=== PATIENT | female | born 1990 | race Caucasian/White ===

== ENCOUNTER 2024-12-13 07:20 | Emergency (ER) | payer BC, SELFPAY ==
--- OUTSIDE RECORDS SUMMARY | 2024-12-13 07:23 | XMS_ITS | Data Portability ---
Author Organization YASIR Noel DEICER TESTER, [id number] Address [address] [place] [id number] Assessment No assessment recorded. Plan of Treatment Reminders Order Date Submit Date Provider Last Modified By Organization Details Last Modified Time Details Appointments None recorded. Lab thyrotropin , QN, serum or plasma 2023 [facility], [address] [place] [address], [address], [place], [address], 4 10:51:12 Referral None recorded. Procedures None recorded. Surgeries None recorded. Imaging US, obstetric, biophysical profile + non-stress test 2023 024 [facility] [email or web address] rtners_[place] , [address] [facility], [address] [place] [address], [address], 4 16:46:20 US, obstetric, biophysical profile + non-stress test 2023 024 [facility] [email or web address]_[email or web address] rtners_[place] , [address] [facility], [address], [address], 4 16:49:56 US, obstetric, follow-up 2023 024 [facility]app Not available 15:09:06 Medication Orders None recorded. Patient TargetsNo targets recorded. Patient Instructions Encounter Date Encounter Id Patient Instructions Last Modified By Organization Details Last Modified Time 11/20/2023 [id number] venous blood draw* [email or web address] Not available 11/20/2023 12:35:35 Reason for Referral None Reported. Results Created Date Observation Date Name Description Value Unit Range Abnormal Flag Note LastModifiedBy Organization Detail LastModifiedTime 09/04/19 24 09/04/2023 GROUP B STREP TOCOC CUS PCR WITH REFLE X TO CULTU RE AND SENSI TIVIT Y group B strep PCR Negati ve negati ve Presu med negat [place] for Strep tococ cus agala ctiae (Grou p B Strep tococ cus) or the numbe r of organ isms may be below the limit of detec tion of the assay . The Cephe id Xpert GBS LB Assay , perfo rmed on the GeneX pert? ? Instr ument Syste ms, is a quali tativ e in vitro diagn ostic test desig darcie to detec t Group B Strep tococ cus (GBS) DNA from enric hed vagin al/re ctal swab speci mens, using fully autom ated, real- time polym erase chain react ion (PCR) with fluor ogeni c detec tion of the ampli fied DNA. Xpert GBS LB Assay testi ng is indic ated as an aid in deter minin g GBS colon izati on statu s in antep artum women . This assay does not diagn ose or monit or treat ment for GBS infec tions . The Cephe id Xpert GBS LB Assay is inten ded for use in hospi sulema, refer ence or state labor atory setti ngs. The devic e is not inten ded for point -of-c are use. Not Available [address], [place], [address], 09/05/2023 18:21:26 09/04/19 24 09/04/2023 bacte rial vagin osis + vagin itis panel , vagin al gardnerella positi ve negati ve abnormal Not Available [id number] vaca_harris lockhart [address] [facility] [address], [place], [address], 09/04/2023 16:34:04 09/04/19 24 09/04/2023 bacte rial vagin osis + vagin itis panel , vagin al trichomonas negati ve negati ve normal Not Available [id number] rtners_harris le [address] [facility] [address], [place], [address], 09/04/2023 16:34:04 09/04/19 24 09/04/2023 bacte rial vagin osis + vagin itis panel , vagin al delvis negati ve negati ve normal Not Available [id number] rtners_[place] le [address] [facility] [address], [place], [address], 09/04/2023 16:34:04 09/11/19 24 09/11/2023 HEMOG LOBIN hemoglobin 10.5 g/dL 11.7-1 5.7 low Not Available [address], [place], [address], 09/11/2023 21:21:59 09/11/19 24 09/11/2023 HEMOG LOBIN A1C hemoglobin A1C 5.4 % <5.7 Talita l <5.7% Predi abete s 5.7-6 .4% Diabe adri 6.5% or highe r Note: Adopt ed from ADA conse nsus guide lines . Not Available [address], [place], [address], 09/11/2023 21:22:00 11/20/19 24 11/20/2023 THYRO TROPI N (TSH) TSH 2.22 uIU/m L 0.30-4 .20 Not Available [address], [place], [address], 11/21/2023 10:51:12 09/04/19 24 09/04/2023 US, obste tric, bioph ysica l profi le + non-s tress test No observ ation record ed. [email or web address] [address], [place], [address], 09/05/2023 10:16:02 09/11/19 24 09/11/2023 US, obste tric, bioph ysica l profi le + non-s tress test No observ ation record ed. [email or web address] [address], [place], [address], 09/11/2023 20:47:09 09/19/19 24 09/19/2023 US, obste tric, bioph ysica l profi le + non-s tress test No observ ation record ed. [email or web address] i [address], [place], [address], 09/19/2023 16:56:30 09/19/19 24 09/19/2023 non-s tress test No observ ation record ed. [email or web address] [facility]ners[facility] le [address] [facility] [address], [place], [address], 09/19/2023 17:10:12 09/25/19 24 09/25/2023 US, obste tric, bioph ysica l profi le + non-s tress test No observ ation record ed. [email or web address] [address], [place], [address], 09/26/2023 13:44:20 10/02/19 24 10/02/2023 US, obste tric, bioph ysica l profi le + non-s tress test No observ ation record ed. [email or web address] [address], [place], [address], 10/02/2023 17:23:52 10/09/19 24 10/09/2023 US, obste tric, bioph ysica l profi le + non-s tress test No observ ation record ed. [email or web address] [address], [place], [address], 10/09/2023 15:53:58 Result Notes None recorded. Problems Name Problem SNOMED Code Status Onset Date Resolution Date Notes Provider Name and Address Organization Details Recorded Time Obesity 602079910 Completed BMI=35 @ 9wks [place] [address], [place], [address] 4 17:27:21 History of bariatric surgical procedure 687563774 Completed Hx [place]astric [place] [address], [place], [address], [facility] 4 17:27:21 Celiac disease 647067645 Active 2022 Rodney Anderson (TERMED) null, [facility] DEICER TESTER 3 11:25:11 Polycysti c ovary syndrome 697202390 Active 2022 Rodney Azevedoic (TERMED) null, [place] - [employer] DEICER TESTER 3 11:25:21 44282668 Completed 202211/06/2023 Rolanda Bahena null, [facility] DEICER TESTER 4 13:39:40 Problem Notes None recorded. Procedures Surgical History Date Name Laterality Status Provider Name and Address Organization Details Recorded Time 01/28/20 24 IUD Insertion Procedure Note (Premier) cancelled Karen Galvin [facility] 12/24/2023 13:47:17 10/09/19 24 Non-Stress Test NST (single) (Premier) [place] [address], [place], [address], [facility] 10/09/2023 16:10:49 10/02/19 24 Non-Stress Test NST (single) (Premier) [place] [address], [place], [address], [facility] 10/02/2023 17:25:13 09/25/19 24 Non-Stress Test NST (single) (Premier) [place] [address], [place], [address], [place] - [facility]ER TESTER 09/26/2023 23:00:11 09/19/19 24 Non-Stress Test NST (single) (Premier) completed SILVANO WELDON PA-C [address], [place], [address], [place] - [facility] 09/19/2023 17:08:38 09/11/19 24 Non-Stress Test NST (single) (Premier) [place] [address], [place], [address], [place] - [facility] 09/11/2023 16:39:06 09/04/19 24 Non-Stress Test NST (single) (Premier) [place] [address], [place], [address], [place] - [facility] 09/04/2023 16:36:09 08/28/19 24 Non-Stress Test NST (single) (Premier) completed SILVANO WELDON PA-C [address], [place], [address], [place] [facility] 08/28/2023 17:37:24 08/22/19 24 Non-Stress Test NST (single) (Premier) completed SILVANO WELDON PA-C [address], [place], [address], [place] - [facility] 08/22/2023 17:17:19 04/03/20 23 Date of Last Pap Smear completed Karen Galvin [place] - [facility] 09/11/2023 15:38:29 11/08/19 16 laparoscopic sleeve gastrectomy completed Not Available [facility] 12/24/2019 05:09:31 05/27/20 16 dilation and curettage completed Not Available [facility] 12/24/2019 05:09:32 myringotomy with tubes discharge education completed Not Available [facility] 12/24/2019 05:09:31 tonsillectomy completed Not Available [facility] 12/24/2019 05:09:31 Cholecystectomy completed Not Available [facility] 12/24/2019 05:09:31 Imaging Results None recorded. Procedure Notes None recorded. Medical Equipment None Reported. Allergies No known drug allergies Medications Name Sig Start Date Stop Date Status Note LastModified by Organization Details LastModified Time vitamin d3 1.25 mg (60053 ut) caps 02/25 completed Not Available Not Available Not Available cyclobenzap rine 10 mg tablet 02/25 completed Not Available Not Available Not Available amoxicillin 500 mg capsule 07/17 completed Not Available Not Available Not Available prednisone 10 mg tablet TAKE 4 TABLETS BY MOUTH ONCE DAILY WITH MEALS FOR 2 DAYS THEN 3 ONCE DAILY FOR 2 DAYS THEN 2 ONCE DAILY FOR 2 DAYS THEN 1 ONCE DAILY FOR 2 DAYS . TAKE WITH A MEAL. 02/25 completed Not Available Not Available Not Available valacyclovi r 1 gram tablet Take 1 tablet every 8 hours by oral route for 7 days. 11/19 completed Not Available Not Available Not Available prednisone 20 mg tablet TAKE 2 TABLETS BY MOUTH ONCE DAILY FOR 5 DAYS 11/19 completed Not Available Not Available Not Available metronidazo le 500 mg tablet TAKE 1 TABLET BY MOUTH EVERY 12 HOURS FOR 7 DAYS FOR BACTERIAL VAGINOSIS . 09/18 completed Not Available Not Available Not Available hydroxyzine HCl 50 mg tablet TAKE 2 TABLETS BY MOUTH ONCE DAILY AT BEDTIME FOR SLEEP active Not Available Not Available No t Available triamcinolo ne acetonide 0.1 % topical cream 11/19 completed Not Available Not Available Not Available amoxicillin 500 mg tablet 10/06 completed Not Available Not Available Not Available meloxicam 7.5 mg tablet TAKE 1 TABLET BY MOUTH ONCE DAILY 02/25 completed Not Available Not Available Not Available benzonatate 100 mg capsule TAKE 1 CAPSULE BY MOUTH THREE TIMES DAILY NEEDED FOR COUGH 02/25 completed Not Available Not Available Not Available sertraline 25 mg tablet TAKE 1 TABLET BY MOUTH IN THE MORNING 02/25 completed Not Available Not Available Not Available fluticasone propionate 220 mcg/actuati on HFA aerosol inhaler INHALE 1 PUFF BY MOUTH TWICE DAILY 02/25 completed Not Available Not Available Not Available methylpredn isolone 4 mg tablets in a dose pack 02/25 completed Not Available Not Available Not Available fluticasone propionate 50 mcg/actuati on nasal spray,suspe nsion USE 1 SPRAY(S) IN EACH NOSTRIL ONCE DAILY active Not Available Not Available No t Available doxycycline hyclate 100 mg tablet TAKE 1 TABLET BY MOUTH TWICE DAILY FOR 7 DAYS 02/25 completed Not Available Not Available Not Available amoxicillin 875 mg-potassiu m clavulanate 125 mg tablet TAKE 1 TABLET BY MOUTH TWICE DAILY WITH MEALS FOR 5 DAYS 02/25 completed Not Available Not Available Not Available Ventolin HFA 90 mcg/actuati on aerosol inhaler INHALE 2 PUFFS BY MOUTH EVERY 4 HOURS NEEDED FOR SHORTNESS OF BREATH active Not Available Not Available No t Available hydroxyzine pamoate 25 mg capsule TAKE 1 CAPSULE BY MOUTH THREE TIMES DAILY NEEDED FOR ANXIETY 02/25 completed Not Available Not Available Not Available Advair HFA 230 mcg-21 mcg/actuati on aerosol inhaler INHALE 2 PUFFS BY MOUTH TWICE DAILY 02/25 completed Not Available Not Available Not Available Symbicort 160 mcg-4.5 mcg/actuati on HFA aerosol inhaler INHALE 2 PUFFS BY MOUTH TWICE DAILY active Not Available Not Available No t Available cholecalcif jose e (vitamin D3) 1,250 mcg (50,000 unit) capsule TAKE 1 CAPSULE BY MOUTH ONCE A WEEK 02/25 completed Not Available Not Available Not Available + DHA active Not Available Not Available Not Available EluRyng 0.12 mg-0.015 mg/24 hr vaginal ring INSERT 1 RING VAGINALLY AND LEAVE IN PLACE FOR 3 CONSECUTI VE WEEKS, THEN REMOVE FOR 1 WEEK. REPEAT WITH NEW RING. 02/25 completed Not Available Not Available Not Available Vitals Date Recorded Body weight Provider Name an d Address Organization Details Last Updated DateTime 10/02/2023 08980.68994 g Karen COOLEY - [facility] YN 10/02/2023 15:49:44 Date Recorded Body height Body mass index (BMI) Heart rate Systolic And Diastolic Provider Name and Address Organization Details Last Updated DateTime 10/02/2023 162.56 cm 36.9 kg/m2 94 /min 107/63 mm[Hg] Sienna Martell (TERMED) [facility] DEICER TESTER 10/02/2023 15:21:37 Date Recorded Body height Body weight Heart rate Systolic And Diastolic Provider Name and Address Organization Details Last Updated DateTime 10/07/2023 162.56 cm 29607.397 7 g 111 /min 122/81 mm[Hg] Sienna Martell (TERMED) [facility] DEICER TESTER 10/07/2023 11:35:08 Date Recorded Body weight Systolic And Diastolic Provider Name and Address Organization Details Last Updated DateTime 10/09/2023 70726.70830 g 116/69 mm[Hg] [place] [address] [facility],[address], [place], [address], [facility] DEICER TESTER 10/09/2023 16:07:39 Date Recorded Body height Body mass index (BMI) Body weight Heart rate Systolic And Diastolic Provider Name and Address Organization Details Last Updated DateTime 10/09/2023 162.56 cm 36.6 kg/m2 40371.61 g 93 /min 116/69 mm[Hg] Rodney Anderson (TERMED) [facility] DEICER TESTER 10/09/2023 15:42:15 Date Recorded Body height Body mass index (BMI) Body weight Heart rate Systolic And Diastolic Provider Name and Address Organization Details Last Updated DateTime 11/20/2023 162.56 cm 34.6 kg/m2 38625.94 g 71 /min 122/73 mm[Hg] Sienna Martell (TERMED) [facility] DEICER TESTER 11/20/2023 11:39:04 Social History Question Answer Notes LastModified by Organizat ion Details LastModified Time Tobacco Smoking Status Never Smoker Tobacco *Status: Never Not Available [employer] 12/28/2019 11:22:48 Do You Have An Advance Directive? No Does Not Have A Health Directive Information not available 12/28/2019 If You Are , What Was Your Level Of Alcohol Consumption Prior To ? Occasional Socially Information not available 02/25/2023 Is Blood Transfusion Acceptable In An Emergency? Yes Information not available 02/25/2023 What Is Your Level Of Caffeine Consumption? Moderate 1cup Qd Information not available 02/25/2023 What Type Of Diet Are You Following? REGULAR Information not available 02/25/2023 How Many Times Per Week Do You Exercise? 3-4 Times Per Week Walk Daily Information not available 02/25/2023 History Of Domestic Violence No Denies Any History Of Domestic Violence Information not available 12/28/2019 Spouse/Partners Name Rory Day Information not available 02/25/2023 Ethnic Background White Or Information not available 02/25/2023 Are You Passively Exposed To Smoke? No Information not available 02/25/2023 Marital Status Informati on not available 12/28/2019 What Was The Date Of Your Most Recent Tobacco Screening? 02/25/2023 Information not available 02/25/2023 Performs Monthly Self-breast Exam? No Does Not Perform Monthly Breast Exams Information not available 12/28/2019 What Is Your Relationship Status? Information not available 02/25/2023 Are You Sexually Active? Yes Currently Sexually Active Information not available 12/28/2019 Has Tobacco Cessation Counseling Been Provided? Yes Information not available 02/25/2023 On What Date Was Tobacco Cessation Counseling Provided? 02/25/2023 Information not available 02/25/2023 Sex: Unknown Functional Status Question Answer Note LastModified by Organizat ion Details LastModified Time Do you use any illicit or recreational drugs? No Information not available 02/25/2023 What is your level of alcohol consumption? None Information not available 02/25/2023 Are you currently employed? 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 Moderate Exercise on a Regular Basis Information not available 12/28/2019 Mental Status None recorded. Family History Relationship Description Onset Age of this Age Resolved Age Notes LastModified by Organization Details LastModified Time Father Family history of diabetes mellitus Family Histor y of Diabet es: PATERN AL UNCLES Not available 12/24/2019 05:34:35 Father Family history of Cardiovascul ar disease Family Histor y of Hypert ension Not available 12/24/2019 05:34:35 Father Family history of endocrine disorders Family Histor y of Hyperl ipidem ia Not available 12/24/2019 05:34:35 Mother Family history of endocrine disorders Family Histor y of Thyroi d Disord er Not available 12/24/2019 05:34:35 Father Family history of malignant neoplasm Family Histor y of Cancer ; Bone, in ' (pancr eatic) adzihic Not available 02/25/2023 11:37:18 Brother Family history of diabetes mellitus Family Histor y of Diabet es: JAI GOULD UNCLES Not available 12/24/2019 05:34:35 Maternal Grandmother Family history of endocrine disorders Family Histor y of Thyroi d Disord er Not available 12/24/2019 05:34:35 Paternal Uncle Family history of diabetes mellitus Family Histor y of Diabet es: JAI GOULD UNCLES Not available 12/24/2019 05:34:35 Notes:Family History of Canc er; Colon ICD-9 V16.0 Family History of Anxiety ICD-9 V17.0 Family History of Lupus ICD-9 V17.89 Family History of Depression ICD- 9 V17.0 Family History of Cancer; Cervical ICD-9 V16.49 Family History of Migraines ICD-9 V19.8 Family History of Cancer; Breast ICD-9 V16.3 Family History of Gestational Diabetes ICD-9 V18.0 Medical History Condition Response Psych- Depression Y Psych- PMS/PMDD Psych- Anxiety Disorder Y Gynecological History Statement/Question Response History of Vulvar Dysplasia N Date of Last Mammogram Date of LMP 12/31/2022 History of Cervical Dysplasia N Do you have history of sexual trauma? N Menstrual Cycle Length (days) 28 Sexual Orientation Heterosexual Date of Last Diabetes Screening History of Infertility N Sexually Active Y Date of Last Colonoscopy Diethylstilbestrol (DARLENE) exp osed daughters of women who took DARLENE during ? N History of Gestational Diabetes N History of PCOS Y History of Endometriosis N History of Abnormal PAP N History of Recurrent Ovarian Cysts N Date of Last HPV Test Date of last bone density Age at Menarche: 14 History of Sexually Transmitted Infectio n N HPV Vaccine Not Completed Current Control Method None History of Fibroids N Urinary Incontinence Symptoms N Date of Last Pap Smear 04/03/2023 Date of Last Cholesterol Screening History of Dysmenorrhea N History of HPV N Obstetrics History GPAL:G 6 P 4 0 2 4 Type Value Multiple Births 0 Full Term 4 Induced 0 Spontaneous 1 Premature 0 Living 4 Ectopics 1 Total 6 Immunizations Vaccine Type Date Status Note Provider Nam e and Address Organization Details Recorded Time Influenza, split virus, quadrivalent, PF 03/14/2023 completed SILVANO WELDON PA-C [address] [facility],[address], [place], [address], [facility]ICER TESTER 04/01/2023 16:43:21 Tdap 07/29/2023 completed Alondra Schrader (TERMED) [facility], [place] - [facility]ICER TESTER 07/30/2023 10:44:53 Tdap 08/10/2019 completed Not Available [facility] 12/24/2019 05:12:06 Past Encounters Encounter ID Performer Location Encounter Start Date Encounter Closed Date Diagnosis/Indication Diagnosis SNOMED-CT Code Diagnosis ICD10 Code Diagnosis Note [id number] SILVANO WELDON PA-C [id number] TOMMY S_LILYDAL E [address] [place] [address] 02/25/2023 10:27:00 02/26/2023 11:07:04 Gestation period, 6 weeks 38933675 Z3A.01 [id number] SOM EPSTEIN MD [id number]_PIS MONIQUEARTLYNN S_LILYDAL E [address] [place] [address] 02/25/2023 10:24:42 02/25/2023 10:53:22 Routine care 200359448 Z34.91 [id number] SILVANO WELDON PA-C GN854_CSY TOMMY S_LILYDAL E [address] [place] [address] 03/14/2023 09:22:54 04/02/2023 15:54:38 Routine care 711280152 Z34.91 Administra tion of influenza vaccine 86224098 Z23 History of bariatric surgical procedure 136631092 Z98.84 Gastric Sleeve Obesity 331827211 E66.9 BMI=35 Gestation period, 9 weeks 122307 Z3A.09 [id number] Bethany Mazariegos MD VY157_QLQ ROPARTNER S_LILYDAL E [address] [address] 04/03/2023 09:44:30 04/03/2023 14:33:11 screening 893443190 Z36.9 Routine an tenatal care 701840081 Z34.81 Family his tory of malignant neoplasm of ovary 897566172 Z80.41 MAT GM AND PTS MOM NEG GENETIC TESTING Obesity 936874179 E66.9 HX GASTRIC SLEEVE SO NO 1 HR AND WILL DO OCC HGBA1C AND CHECK SUGARS AT 28 WKS [id number] CINTHIA MILAN, DO YJ884_JAX ROPARTNER S_LILYDAL E [address] [place] [address] 03/14/2023 09:22:27 03/14/2023 09:46:23 Routine care 885548782 Z34.91 [id number] Bethany Mazariegos MD ZU123_SBN ROPARTNER S_LILYDAL E [address] [place] [address] 05/01/2023 15:25:25 05/02/2023 14:58:01 Routine care 014556772 Z34.81 screening 2437 93269 Z36.9 Gestation period, 16 weeks 81224162 Z3A.16 [id number] Bethany Mazariegos MD RC003_KOB ROPARTNER S_LILYDAL E [address] [place] [address] 04/03/2023 10:30:39 04/03/2023 12:19:02 Uncertain viability of 711600345 O36.80X9 [id number] MARINA DURAN MD [id number]_FYI ROPARTNER S_LILYDAL E [address] [place] [address] 1 05/29/2023 10:19:25 05/29/2023 11:17:05 screening for malformation 946743968 Z36.3 [id number] CASANDRA MACKEY MD SN207_FYU ROPARTNER S_LILYDAL E [address] [place] [address], [place] [address] 05/29/2023 10:19:39 05/29/2023 12:28:46 Routine care 600481088 Z34.82 Gestation period, 20 weeks 52155615 Z3A.20 [id number] MD PEDRO Nicholson003_MET PRATIBHANER S_LILYDAL E [address] [place] [address], [place] [address] 06/12/2023 14:17:03 06/13/2023 09:49:04 Routine care 686157994 Z34.81 Gestation period, 22 weeks 48617452 Z3A.22 Obesity 873596721 E66.9 HX GASTRIC SLEEVE SO NO 1 HR AND WILL DO OCC HGBA1C AND CHECK SUGARS AT 28 WKS [id number] MD PEDRO Nicholson003_MET MONIQUEARTNER S_LILYDAL E [address] [place] [id number] 1 06/12/2023 14:15:34 06/12/2023 15:20:01 screening 843289310 Z3A.22 4ch, LVOT, 3VV, NL, profile [id number] MD PEDRO Nicholson003_MET MONIQUEARTNER S_LILYDAL E [address] [place] [address] 1 07/17/2023 15:19:03 07/17/2023 17:20:55 Routine care 928981239 Z34.81 [id number] MD PEDRO Nicholson003_MET MONIQUEARTNER S_LILYDAL E [address] [place] [address], [place] [address] 07/17/2023 15:18:58 07/17/2023 15:53:29 screening 636833650 Z3A.27 [id number] Bethany Mies, MD [id number]_TFO ROPARTNER S_LILYDAL E [address] [place] [address] [place] [address] 08/07/2023 15:28:57 08/08/2023 10:48:30 Routine care 775498170 Z34.81 Gestation period, 30 weeks 53515457 Z3A.30 History of bariatric surgical procedure 010515094 Z98.84 [id number] MARSHA OLIVARES, ZZ212_OPS MONIQUEARTNER S_LILYDAL E [address] [place] [address] [place] [address] 07/29/2023 17:10:47 07/31/2023 01:29:48 [facility] 345449659 R42 work note given to avoid in-person class time for the remainder of semester to limit driving at night Female sterilization 608 [address]66 Z30.2 *desire for tubal sterlizati on, consent signed today in the event she has a , this procedure could be performed* Orthostati c hypotension 62751601 I95.1 + today from sitting to standing. Discussed increased fluids, slow to rise, pillow in the bed, dramamine/ unisom PRN at bedtime Low back p ain in 1930252102 106 O26.899 encouraged her to begin using back support which she has and admits this makes the pain better [id number] MD PEDRO Nicholson003_MET TOMMY S_LILYDAL E [address] [place] [address] 1 08/07/2023 16:43:50 08/07/2023 17:10:17 Hypoglycemia [id number] E16.2 Z3A.30 [id number] MD PEDRO Nicholson003_MET MONIQUEARTLYNN S_LILYDAL E [address] [place] [address] 1 09/11/2023 14:20:01 09/13/2023 14:42:33 Routine care 687478153 Z34.81 History of bariatric surgical procedure 973759881 Z98.84 Gestation period, 35 weeks 16889579 Z3A.35 [id number] MD PEDRO Nicholson003_MET ROPARTNER S_LILYDAL E [address] [address] [place] [address] 1 09/25/2023 14:47:33 10/01/2023 08:45:51 Routine care 572078429 Z34.81 History of bariatric surgical procedure 506765235 Z98.84 Gestation period, 37 weeks 50242741 Z3A.37 [id number] Bethany Mazariegos MD JK460_HEC ROPARTNER S_LILYDAL E [address] [place] [address] 1 10/02/2023 14:42:06 10/03/2023 14:08:44 Routine care 298992907 Z34.81 History of bariatric surgical procedure 417570730 Z98.84 Gestation period, 38 weeks 65411710 Z3A.38 [id number] Bethany Mazariegos MD NI763_MDM ROPARTNER S_LILYDAL E [address] [place] [address] 1 10/09/2023 14:45:55 10/11/2023 10:57:54 Routine care 654485989 Z34.81 History of bariatric surgical procedure 654588113 Z98.84 Gestation period, 39 weeks 52676443 Z3A.39 [id number] SILVANO WELDON PA-C FE747_TNZ ROPARTNER S_LILYDAL E [address] [place] [address] 1 08/22/2023 16:18:35 08/26/2023 15:50:21 Gestation period, 32 weeks 8908600 Z3A.32 Hypoglycemia 178033427 E 16.2 BPP=8/8 [id number] SILVANO WELDON PA-C OS989_CPD ROPARTNER S_LILYDAL E [address] [place] [address] 1 08/28/2023 16:01:41 09/02/2023 16:41:02 Gestation period, 33 weeks 90943837 Z3A.33 la bor without delivery [id number] O60.03 Threatened - Loss of mucus plug with some painful UC's last night that since resolved Hypoglycemia 245781595 E 16.2 BPP=8/8, NST=Reacti ve [id number] CASANDRA MACKEY MD LM091_NKI ROPARTNER S_LILYDAL E [address] [place] [address] [facility] [address] 1 08/22/2023 15:48:50 08/22/2023 16:22:18 Hypoglycemia 215575901 E16.2 [id number] MARINA DURAN MD UY377_MRP ROPARTNER S_LILYDAL E [address] [place] [address] [facility] [address] 1 08/28/2023 15:47:28 08/28/2023 16:22:48 Hypoglycemia 667705881 E16.2 [id number] CASANDRA MACKEY MD PT147_NFM ROPARTNER S_LILYDAL E [address] [place] [address], [place] [address] 1 09/04/2023 15:12:03 09/04/2023 17:16:04 Routine care 584045230 Z34.82 Gestation period, 34 weeks 58468899 Z3A.34 Vaginal discharge 764223 006 N89.8 Bacterial vaginosis in 0504715851 96000 O23.243 [id number] MD PEDRO Nicholson003_MET ROPARTNER S_LILYDAL E [address] [place] [address] [facility] [address] 1 09/04/2023 15:11:34 09/04/2023 15:50:26 Hypoglycemia 045189759 E16.2 Z3A.34 [id number] MD PEDRO Nicholson003_MET ROPARTNER S_LILYDAL E [address] [place] [address] [facility] [address] 1 09/11/2023 14:18:40 09/11/2023 14:51:21 Hypoglycemia 079332077 E16.2 [id number] SILVANO WELDON PA-C OM299_FVV ROPARTNER S_LILYDAL E [address] [place] [address] [facility] [address] 1 09/19/2023 15:45:54 09/19/2023 17:13:40 Gestation period, 36 weeks 38920064 Z3A.36 Low matern al weight gain 71740025 O26.13 History of bariatric surgical procedure 432150602 Z98.84 Gastric Sleeve [id number] Bethany Mazariegos MD LJ678_YSU ROPARTNER S_LILYDAL E [address] [place] [address] 09/25/2023 14:39:31 09/25/2023 15:02:57 Maternal obesity complicating , childbirth and the puerperium, antepartum 9432659644 07 Z3A.37 [id number] CINTHIA MILAN, IB654_FAQ ROPARTNER S_LILYDAL E [address] [place] [address], [place] [address] 1 09/19/2023 15:44:52 09/19/2023 16:17:08 Low maternal weight gain 22790054 O26.13 Hypoglycem ia [id number] Bethany Mazariegos MD LK801_BGL ROPARTNER S_LILYDAL E [address] [place] [address] 10/02/2023 14:40:48 10/02/2023 15:09:06 Low maternal weight gain 33402901 Z3A.38 [id number] CASANDRA MACKEY MD XB452_WWV ROPARTNER S_LILYDAL E [address] [address] 10/07/2023 11:27:21 10/07/2023 14:33:40 Routine care 466102352 Z34.82 Gestation period, 39 weeks 71838821 Z3A.39 [id number] Bethany Mazariegos MD SI125_DGQ ROPARTNER S_LILYDAL E [address] [place] [address] 10/09/2023 14:41:19 10/09/2023 15:02:39 Low maternal weight gain 18211047 Z3A.39 [id number] Bethany Mazariegos MD TD590_VLI ROPARTNER S_LILYDAL E [address] [facility] [address] [place] [address] 11/20/2023 11:24:14 11/20/2023 14:54:30 state 86647285 Z39.2 rev iud and had 2 misplaced and pain so rev condoms and rtc [address] with ultrasound --uterus very ant and still ?fu 1 mth after placement- -?do pap at that time Thyroid di sorder screening 280039040 Z13.29 sl generous and redo when here for iud Health Concerns Section Related Observation LastModified by Organization Detai ls LastModified Time None Recorded Concern Status LastModified by Organization Details LastModified Time None Recorded Advance Directives Directive N: Does Not have a Health Di rective Payers None recorded. Notes Date Note Type Note Provider Name and Address Organization Details Recorded Time 10/07/2023 text/html 31 [id number] [place] [address] [email or web address], [place], [address], [place] - [employer] 10/07/2023 12:21:30 11/20/2023 text/html ([facility])Reported by PatientHPIFor problems, patient reportshemorrhoids. For delivering provider, patient reportshadley welch md. For date of delivery, patient [id number]/10/2023. For gestational age at delivery, patient [id number] weeks. For labor/delivery, patient reportsno laceration. For weight of baby, patient reportssingleton: 7 lbsand2 oz. For nicu stay for baby, patient reportsno. For breast or bottle feeding, patient reportsbreastfeedin g. For intercourse since delivery, patient reportsno. For preferred contraception, patient reports__. For depression, patient reportsgood social support. For last pap smear, patient reportsdate: 3andresult normal.ROS as [place] [address] [address], [place], [address], [place] - [employer] 11/20/2023 13:27:06 OBGyn Episode Ob Episode Information Episode Created Date Number of Fetuses Patient Bloodtype Patient rh Status Prepregnancy Weight lbs Domestic Partner Domestic Partner Phone Father Name Relief Captain Status 02/26/20 1 CLOSED Fetus Data First Name Last Name Admitted to NICU Weight (g) Sex Living Outcome Pediatric Complications Fetus ID Race Codes Race Delivery Type F [id number] Darcy Calculation Initial Darcy Date Initial Exam Date Initial Exam Provider Initial Ultrasound Date Last Menstrual Period Date Ultra Sound Weeks Gestation 0 Eighteen To Twenty Week Darcy Update Ultra Sound Date Fundal Height At Umbil Quickening Date Ultra Sound Latest Weeks Gestation Final Darcy Confirmed By Final Darcy Confirmed Date Final Darcy Date Ultra Sound Latest Days Gestation 0 0 Menstrual History Last Menstrual Date Menses Monthly On Bcp Conception Prior Menses Frequency Hcg Plus Date Menarche Onset Age Delivery Information Delivery Date Delivery Type Labor Anesthesia Weeks Gestation Incision Type Labor Labor Length Hrs Delivered By Post Complications Tubal Sterilization Discharge Date Comments 3 Discharge Information Feeding Method Contraceptive Method Maternal HG B and HCT Levels Ob Episode Information Episode Created Date Number of Fetuses Patient Bloodtype Patient rh Status Prepregnancy Weight lbs Domestic Partner Domestic Partner Phone Father Name Relief Captain Status 02/26/20 1 DELETED Darcy Calculation Initial Darcy Date Initial Exam Date Initial Exam Provider Initial Ultrasound Date Last Menstrual Period Date Ultra Sound Weeks Gestation 0 Eighteen To Twenty Week Darcy Update Ultra Sound Date Fundal Height At Umbil Quickening Date Ultra Sound Latest Weeks Gestation Final Darcy Confirmed By Final Darcy Confirmed Date Final Darcy Date Ultra Sound Latest Days Gestation 0 0 Menstrual History Last Menstrual Date Menses Monthly On Bcp Conception Prior Menses Frequency Hcg Plus Date Menarche Onset Age Delivery Information Delivery Date Delivery Type Labor Anesthesia Weeks Gestation Incision Type Labor Labor Length Hrs Delivered By Post Complications Tubal Sterilization Discharge Date Comments 0 Discharge Information Feeding Method Contraceptive Method Maternal HG B and HCT Levels Ob Episode Information Episode Created Date Number of Fetuses Patient Bloodtype Patient rh Status Prepregnancy Weight lbs Domestic Partner Domestic Partner Phone Father Name Relief Captain Status 02/26/20 1 CLOSED Fetus Data First Name Last Name Admitted to NICU Weight (g) Sex Living Outcome Pediatric Complications Fetus ID Race Codes Race Delivery Type F [id number] Darcy Calculation Initial Darcy Date Initial Exam Date Initial Exam Provider Initial Ultrasound Date Last Menstrual Period Date Ultra Sound Weeks Gestation 0 Eighteen To Twenty Week Darcy Update Ultra Sound Date Fundal Height At Umbil Quickening Date Ultra Sound Latest Weeks Gestation Final Darcy Confirmed By Final Darcy Confirmed Date Final Darcy Date Ultra Sound Latest Days Gestation 0 0 Menstrual History Last Menstrual Date Menses Monthly On Bcp Conception Prior Menses Frequency Hcg Plus Date Menarche Onset Age Delivery Information Delivery Date Delivery Type Labor Anesthesia Weeks Gestation Incision Type Labor Labor Length Hrs Delivered By Post Complications Tubal Sterilization Discharge Date Comments 1 Discharge Information Feeding Method Contraceptive Method Maternal HG B and HCT Levels Ob Episode Information Episode Created Date Number of Fetuses Patient Bloodtype Patient rh Status Prepregnancy Weight lbs Domestic Partner Domestic Partner Phone Father Name Relief Captain Status 03/14/20 23 1 O Positive Rory Valadez CLOSED Fetus Data First Name Last Name Admitted to NICU Weight (g) Sex Living Outcome Pediatric Complications Fetus ID Race Codes Race Delivery Type true Full Term [id number] Problems Problem Notes Mies/WW/FOB: Rory (Pt work s at [employer] ALSO STUDENT FOR [employer] AND 18 MTHS LEFT (1st=John, 2nd=Miles, 3rd=Yaneth) DARCY: 10/15/23 by 6wk US -- (c/w 9wk US)PANORAMA=NL HORIZON=NL AFP=NL FAS=NL AND REDO PROFILE=NL- Hx of Gastric Sleeve-DOING GLUCOSE TESTING FEW TIMES A WK AND ALL NL AND HAS NEVER BEEN DIABETIC HGB A1C 06/12=5.2 AT 22 WKS--30 WKS SOME LOW SUGARS SO GROWHT Q 4 WKS AND BPP/NST Q WK AT 32 WKS- Obesity (BMI=35): Rec 11-20 lb wt gain---REV SUGARS AT 27 WKS AND GOODMAT GM WITH BREAST AND OVARIAN CA AND PTS MOM GENETIC TESTING NEG AND PT WANTS TUBAL SO PLAN 3 MTHS PP AND SALPINGECTOMY--?PT WANTS EMPOWER?INDUCE AT 39 WKS-HX OF PRECIPITOUS DEL AFTER ROMGROWTH 47% AT 38 WKS-7LBS 2 OZ --SOME HYPOGLYCEMIA SO HGB A1C=5.3 ON --HGB=10.5 Problem Name Start Date End Date Resolution Snomed Code Not e Obesity [id number] BMI=35 @ 9 wks History of bariatric surgical procedure [id number] Hx of Gas tric Sleeve Darcy Calculation Initial Darcy Date Initial Exam Date Initial Exam Provider Initial Ultrasound Date Last Menstrual Period Date Ultra Sound Weeks Gestation 10/15/2023 03/14/2023 02/25/2023 12/31/2022 6 Eighteen To Twenty Week Darcy Update Ultra Sound Date Fundal Height At Umbil Quickening Date Ultra Sound Latest Weeks Gestation Final Darcy Confirmed By Final Dacry Confirmed Date Final Darcy Date Ultra Sound Latest Days Gestation 0 [id number] 04/01/2023 10/15/19 24 0 Pre-ladan Flowsheet Flowsheet Date 03/14/2023 Daigle Score Blood Edema Fundus Height Fundus Units Glucose Ketones Leukocytes Nitrite Labor Signs Protein Cervic Dilation Cervic Effacement Cervic Station Type Weight in lbs Pre/Post Dialysis Refused BP Diastolic BP Location Tested BP Systolic BP Type Fetus Heart Rate Present Fetus Movement Comments Flowsheet Date 03/14/2023 Daigle Score Blood Edema Fundus Height Fundus Units Glucose Ketones Leukocytes Nitrite Labor Signs Protein Cervic Dilation Cervic Effacement Cervic Station none none Type Weight in lbs Pre/Post Dialysis Refused Weight 205.119898819488 BP Diastolic BP Location Tested BP Systolic BP Type 75 124 sitting Fetus Heart Rate Present A 178 Present Fetus Movement A No Comments Pt reports nausea, occasiona l vomiting, fatigue, breast tenderness, urinary frequency. Denies VB, cramping/abd pain, dysuria. Reviewed 1st OB packet. Sent OB labs. Considering screenings. Gave SAB precautions. RTC in 3wks. All questions answered. Flowsheet Date 04/03/2023 Daigle Score Blood Edema Fundus Height Fundus Units Glucose Ketones Leukocytes Nitrite Labor Signs Protein Cervic Dilation Cervic Effacement Cervic Station neg 12 wks none negative none Negative trace Type Weight in lbs Pre/Post Dialysis Refused Weight 202.974811017170 BP Diastolic BP Location Tested BP Systolic BP Type 65 110 Fetus Heart Rate Present Fetus Movement Comments UA - Trace Bili--US FOR FHT AND TESTING TODAY FOR PANORAMA AND HORIZON Flowsheet Date 04/03/2023 Daigle Score Blood Edema Fundus Height Fundus Units Glucose Ketones Leukocytes Nitrite Labor Signs Protein Cervic Dilation Cervic Effacement Cervic Station Type Weight in lbs Pre/Post Dialysis Refused BP Diastolic BP Location Tested BP Systolic BP Type Fetus Heart Rate Present Fetus Movement Comments Flowsheet Date 05/01/2023 Daigle Score Blood Edema Fundus Height Fundus Units Glucose Ketones Leukocytes Nitrite Labor Signs Protein Cervic Dilation Cervic Effacement Cervic Station neg 16 wks none small none Negative neg Type Weight in lbs Pre/Post Dialysis Refused Weight 199.619507984549 BP Diastolic BP Location Tested BP Systolic BP Type 67 105 Fetus Heart Rate Present A Present Fetus Movement Comments AFP TODAY AND FEELS GOOD Flowsheet Date 05/29/2023 Daigle Score Blood Edema Fundus Height Fundus Units Glucose Ketones Leukocytes Nitrite Labor Signs Protein Cervic Dilation Cervic Effacement Cervic Station Type Weight in lbs Pre/Post Dialysis Refused BP Diastolic BP Location Tested BP Systolic BP Type Fetus Heart Rate Present Fetus Movement Comments Flowsheet Date 05/29/2023 Daigle Score Blood Edema Fundus Height Fundus Units Glucose Ketones Leukocytes Nitrite Labor Signs Protein Cervic Dilation Cervic Effacement Cervic Station 20 cm none Type Weight in lbs Pre/Post Dialysis Refused With clothes 203.21547739885 BP Diastolic BP Location Tested BP Systolic BP Type 60 113 Fetus Heart Rate Present A 140 Fetus Movement A Yes Comments Patient is here for her 20-w coquille OB visit. She is doing well. She had her 20 week anatomy scan done today.//TWG -2#. FAS today is nl but limited views of heart, profile and umbilical cord, EFW 66%, anterior placenta. RTC in 2 weeks for limited u/s. She is doing well. No concerns. Denies VB, LOF, UC. Active FM. El Flowsheet Date 06/12/2023 Daigle Score Blood Edema Fundus Height Fundus Units Glucose Ketones Leukocytes Nitrite Labor Signs Protein Cervic Dilation Cervic Effacement Cervic Station Type Weight in lbs Pre/Post Dialysis Refused BP Diastolic BP Location Tested BP Systolic BP Type Fetus Heart Rate Present Fetus Movement Comments Flowsheet Date 06/12/2023 Daigle Score Blood Edema Fundus Height Fundus Units Glucose Ketones Leukocytes Nitrite Labor Signs Protein Cervic Dilation Cervic Effacement Cervic Station 23 wks Type Weight in lbs Pre/Post Dialysis Refused Weight 199.010048519606 BP Diastolic BP Location Tested BP Systolic BP Type 69 109 Fetus Heart Rate Present A Present Fetus Movement A Yes Comments DOING FBS AND 1 HR AND ALL G OOD RANDOMLY--WILL DO HGB AND HGB A1C TODAY Flowsheet Date 07/17/2023 Daigle Score Blood Edema Fundus Height Fundus Units Glucose Ketones Leukocytes Nitrite Labor Signs Protein Cervic Dilation Cervic Effacement Cervic Station Type Weight in lbs Pre/Post Dialysis Refused BP Diastolic BP Location Tested BP Systolic BP Type Fetus Heart Rate Present Fetus Movement Comments Flowsheet Date 07/17/2023 Daigle Score Blood Edema Fundus Height Fundus Units Glucose Ketones Leukocytes Nitrite Labor Signs Protein Cervic Dilation Cervic Effacement Cervic Station neg 27 wks none negative none Negative neg Type Weight in lbs Pre/Post Dialysis Refused Weight 207.666732794777 BP Diastolic BP Location Tested BP Systolic BP Type 67 108 Fetus Heart Rate Present A Present Fetus Movement A Yes Comments pt reports +FM/no VB or abno rmal cramping. pt reports of no other problems or concerns //AD--going to [place] and travel rev--blood sugars good and occ low in am and diet and fluids rev Flowsheet Date 07/29/2023 Daigle Score Blood Edema Fundus Height Fundus Units Glucose Ketones Leukocytes Nitrite Labor Signs Protein Cervic Dilation Cervic Effacement Cervic Station Type Weight in lbs Pre/Post Dialysis Refused With clothes 211.760500199353 BP Diastolic BP Location Tested BP Systolic BP Type 74 R arm 110 sitting 72 R arm 108 standing 75 L arm 121 supine Fetus Heart Rate Present A Present Fetus Movement A Yes Comments See progress note/ Tubal con sent signed today. Tdap given. Flowsheet Date 08/07/2023 Daigle Score Blood Edema Fundus Height Fundus Units Glucose Ketones Leukocytes Nitrite Labor Signs Protein Cervic Dilation Cervic Effacement Cervic Station neg 31 wks none large none Negative neg Type Weight in lbs Pre/Post Dialysis Refused Weight 212.07964865112 BP Diastolic BP Location Tested BP Systolic BP Type 63 L arm 111 sitting Fetus Heart Rate Present A Present Fetus Movement A Yes Comments c/o dizziness--REV BP AND HY DRATION AND ALSO CHECKING SUGARS AND OCC SL LOW SO US FOR GROWTH AND DIET AND PROTEIN REV AND IF CONT CALL AND ? TESTING Flowsheet Date 08/07/2023 Daigle Score Blood Edema Fundus Height Fundus Units Glucose Ketones Leukocytes Nitrite Labor Signs Protein Cervic Dilation Cervic Effacement Cervic Station Type Weight in lbs Pre/Post Dialysis Refused BP Diastolic BP Location Tested BP Systolic BP Type Fetus Heart Rate Present Fetus Movement Comments Flowsheet Date 08/22/2023 Daigle Score Blood Edema Fundus Height Fundus Units Glucose Ketones Leukocytes Nitrite Labor Signs Protein Cervic Dilation Cervic Effacement Cervic Station Type Weight in lbs Pre/Post Dialysis Refused BP Diastolic BP Location Tested BP Systolic BP Type Fetus Heart Rate Present Fetus Movement Comments Flowsheet Date 08/22/2023 Daigle Score Blood Edema Fundus Height Fundus Units Glucose Ketones Leukocytes Nitrite Labor Signs Protein Cervic Dilation Cervic Effacement Cervic Station none Type Weight in lbs Pre/Post Dialysis Refused Weight 210.250907202022 BP Diastolic BP Location Tested BP Systolic BP Type 73 112 sitting Fetus Heart Rate Present A 144 Present Fetus Movement A Yes Comments Pt has been fighting a cold that turned into bronchitis. Reviewed safe meds. Denies VB, LOF, UC. +FM. BPP=12/25. NST=Reactive. Reminded to do daily FKC's. RTC in 1wk. All questions answered. Flowsheet Date 08/28/2023 Daigle Score Blood Edema Fundus Height Fundus Units Glucose Ketones Leukocytes Nitrite Labor Signs Protein Cervic Dilation Cervic Effacement Cervic Station Type Weight in lbs Pre/Post Dialysis Refused BP Diastolic BP Location Tested BP Systolic BP Type Fetus Heart Rate Present Fetus Movement Comments Flowsheet Date 08/28/2023 Daigle Score Blood Edema Fundus Height Fundus Units Glucose Ketones Leukocytes Nitrite Labor Signs Protein Cervic Dilation Cervic Effacement Cervic Station none Jovon Freeman 1cm 10% -4 Type Weight in lbs Pre/Post Dialysis Refused Weight 212.81872519395 BP Diastolic BP Location Tested BP Systolic BP Type 69 107 sitting Fetus Heart Rate Present A 140 Present Fetus Movement A Yes Comments Pt reports increased stress recently with her 12 year old hospitalized for Bipolar disorder and they had to put their cat down. She reports loss of mucus plus last night and a few painful UC's. Denies VB, LOF. +BH. +FM. BPP=12/25. NST=Reactive. No gel used. Sent FFN & BDAffirm. Increase PO hydration and rest. Gave PTL precautions. Reminded to do daily FKC's. RTC in 1wk. All questions answered. Flowsheet Date 09/04/2023 Daigle Score Blood Edema Fundus Height Fundus Units Glucose Ketones Leukocytes Nitrite Labor Signs Protein Cervic Dilation Cervic Effacement Cervic Station Type Weight in lbs Pre/Post Dialysis Refused BP Diastolic BP Location Tested BP Systolic BP Type Fetus Heart Rate Present Fetus Movement Comments Flowsheet Date 09/04/2023 Daigle Score Blood Edema Fundus Height Fundus Units Glucose Ketones Leukocytes Nitrite Labor Signs Protein Cervic Dilation Cervic Effacement Cervic Station Cramping 1cm 30% - 3 Type Weight in lbs Pre/Post Dialysis Refused Weight 213.323274834856 BP Diastolic BP Location Tested BP Systolic BP Type 64 104 Fetus Heart Rate Present A 130 Fetus Movement A Yes Comments EFW today 2263 g (33%ile) nl fluid. BPP 8/8. NST reactive. She is doing well. She reports cramping and back contractions at night. Reports more vaginal discharge, mucus plug. Affirm today shows BV, rx for metronidazole faxed. [place] quiet today. GBS done. SVE 1.5/30%/-3. Rx for hydroxyzine faxed. Denies VB, LOF. Active FM. RTC in 1 week. SCallanan Flowsheet Date 09/11/2023 Daigle Score Blood Edema Fundus Height Fundus Units Glucose Ketones Leukocytes Nitrite Labor Signs Protein Cervic Dilation Cervic Effacement Cervic Station Type Weight in lbs Pre/Post Dialysis Refused BP Diastolic BP Location Tested BP Systolic BP Type Fetus Heart Rate Present Fetus Movement Comments Flowsheet Date 09/11/2023 Daigle Score Blood Edema Fundus Height Fundus Units Glucose Ketones Leukocytes Nitrite Labor Signs Protein Cervic Dilation Cervic Effacement Cervic Station neg none wks trace small trace Negative trace Type Weight in lbs Pre/Post Dialysis Refused Weight 216.08926806682 BP Diastolic BP Location Tested BP Systolic BP Type 68 113 Fetus Heart Rate Present A Present Fetus Movement A Yes Comments BPP 8/8 Nst reactive-hgb and hgb a1c today with glucosuria Flowsheet Date 09/19/2023 Daigle Score Blood Edema Fundus Height Fundus Units Glucose Ketones Leukocytes Nitrite Labor Signs Protein Cervic Dilation Cervic Effacement Cervic Station Type Weight in lbs Pre/Post Dialysis Refused BP Diastolic BP Location Tested BP Systolic BP Type Fetus Heart Rate Present Fetus Movement Comments Flowsheet Date 09/19/2023 Daigle Score Blood Edema Fundus Height Fundus Units Glucose Ketones Leukocytes Nitrite Labor Signs Protein Cervic Dilation Cervic Effacement Cervic Station none Jovon Freeman 1cm 30% -3 Type Weight in lbs Pre/Post Dialysis Refused Weight 215.310415593511 BP Diastolic BP Location Tested BP Systolic BP Type Fetus Heart Rate Present A 148 Present Fetus Movement A Yes Comments Pt is doing well. Minor cont ractions lasting 1-2hrs over night for the last two nights. Denies VB, LOF. +BH. +FM. BPP=12/25. NST=Reactive. EFW=40%. KATIE=9.77cm. Reminded to do daily FKC's. Gave labor precautions. RTC in 1wk. All questions answered. Flowsheet Date 09/25/2023 Daigle Score Blood Edema Fundus Height Fundus Units Glucose Ketones Leukocytes Nitrite Labor Signs Protein Cervic Dilation Cervic Effacement Cervic Station Type Weight in lbs Pre/Post Dialysis Refused BP Diastolic BP Location Tested BP Systolic BP Type Fetus Heart Rate Present Fetus Movement Comments Flowsheet Date 09/25/2023 Daigle Score Blood Edema Fundus Height Fundus Units Glucose Ketones Leukocytes Nitrite Labor Signs Protein Cervic Dilation Cervic Effacement Cervic Station 38 wks 1cm 50% -3 Type Weight in lbs Pre/Post Dialysis Refused Weight 214.424939438981 BP Diastolic BP Location Tested BP Systolic BP Type 67 110 Fetus Heart Rate Present A Present Fetus Movement A Yes Comments +FM no VB or abnormal crampi ng. pt reports of no other problems or concerns //AD-BPP=1010 Flowsheet Date 10/02/2023 Daigle Score Blood Edema Fundus Height Fundus Units Glucose Ketones Leukocytes Nitrite Labor Signs Protein Cervic Dilation Cervic Effacement Cervic Station Type Weight in lbs Pre/Post Dialysis Refused BP Diastolic BP Location Tested BP Systolic BP Type Fetus Heart Rate Present Fetus Movement Comments Flowsheet Date 10/02/2023 Daigle Score Blood Edema Fundus Height Fundus Units Glucose Ketones Leukocytes Nitrite Labor Signs Protein Cervic Dilation Cervic Effacement Cervic Station neg none 38 wks none negative none Negative trace 1cm 5 0% -3 Type Weight in lbs Pre/Post Dialysis Refused Weight [id number] BP Diastolic BP Location Tested BP Systolic BP Type 63 107 Fetus Heart Rate Present A Present Fetus Movement A Yes Comments BPP 12/25 NST reactive--rev in duction for precipitous del and will see dr fitzpatrick saturday and sat adn if cx better induce 10/09-called--was on predisone 20 bid for 5 days only for bronchitis and now antibiotics and doing better Flowsheet Date 10/07/2023 Daigle Score Blood Edema Fundus Height Fundus Units Glucose Ketones Leukocytes Nitrite Labor Signs Protein Cervic Dilation Cervic Effacement Cervic Station Type Weight in lbs Pre/Post Dialysis Refused With clothes [id number] BP Diastolic BP Location Tested BP Systolic BP Type 81 R arm 122 sitting Fetus Heart Rate Present Fetus Movement A Yes Comments Patient is doing well. Cervi x check and strip membranes. She has IOL scheduled later this week. She would like to avoid IOL if possible. Denies VB, LOF, UC. Active FM. RTC in 2 days. El Flowsheet Date 10/09/2023 Daigle Score Blood Edema Fundus Height Fundus Units Glucose Ketones Leukocytes Nitrite Labor Signs Protein Cervic Dilation Cervic Effacement Cervic Station neg 39 cm none negative none Negative neg 2cm 40 % -3 Type Weight in lbs Pre/Post Dialysis Refused [id number] BP Diastolic BP Location Tested BP Systolic BP Type 69 116 Fetus Heart Rate Present A Present Fetus Movement A Yes Comments PLANNED INDUCTION FOR TOMORR OW AND WOULD LIKE TO DO FOR HX OF PRECEPITOUS DEL Menstrual History Last Menstrual Date Menses Monthly On Bcp Conception Prior Menses Frequency Hcg Plus Date Menarche Onset Age 0812/31/2022 true false 28 12 Genetic Screening And Infection History Question Response Note Thalassemia (Luxembourgish, Portuguese, Mediterranean, Or Background): MCV < 80 false Intellectual Disability/Autism false History of HIV false Congenital Heart Defect false Muscular Dystrophy false Sickle Cell Disease Or Trait () false Patient Or Partner Has History Of Genital Herpes false Hemophilia Or Other Blood Disorders false Karen Disease false Patient's Age Will Be 35 Years Or Older At Estim ated Date of Delivery false Maternal Metabolic Disorder (eg, Type 1 Diabetes , PKU) false Fredrick-Sachs (eg, Sabianist, Cajun, Pashto-Turkish) f alse Other Infection History false Milam's Chorea false Cystic Fibrosis false Recurrent Loss, Or A Stillbirth false Rash Or Viral Illness Since Last Menstrual Perio d false Live With Someone With TB Or Exposed To TB false If Yes, Was Person Tested For Fragile X? false Prior GBS-infected child false Any Other Genetic History false Previous Hemoglobinopathy Evaluation false History of Hepatitis false Down Syndrome false Other Inherited Genetic Or Chromosomal Disorder false Previous Carrier Screening Test false Patient Or Baby's Father Had A Child With Defects Not Listed Above false Neural Tube Defect (Meningomyelocele, Spina Bifi da, Or Anencephaly) false History Of STD, Gonorrhea, Chlamydia, HPV, Syphi lis false Delivery Information Delivery Date Delivery Type Labor Anesthesia Weeks Gestation Incision Type Labor Labor Length Hrs Delivered By Post Complications Tubal Sterilization Discharge Date Comments 4 39.2 [place]ley Discharge Information Feeding Method Contraceptive Method Maternal HG B and HCT Levels
--- OUTSIDE RECORDS SUMMARY | 2024-12-13 07:23 | XMS_ITS | Clinical Summary ---
Author Organization Comic Reply [facility] Address [address] [place] [id number] Care Team Providers Care Nanny Caregiver Name Role Phone Shiloh Rodas Primary Care Provider [phone] Ana Lilia Byrd Unavailable Tl Cortes MD Unavailable [phone] Jenni Kowalski RN Unavailable [phone] Bev Avila Unavailable Devora Jackson RD Unavailable Vargas Cash RN Unavailable Allergies Active Allergy Reactions Criticality Noted Date Comments Hydromorphone Vomiting 09/16/2014 Gluten GI Upset High 08/08/2015 Nsaids (Non-Steroidal Anti-Inflammatory Drug) Other - Describe In Comment Field 08/09/2015 Patient had bariatric surgery. Should not ever take NSAIDS due to high risk for gastric ulcers. Medications acetaminophen (TYLENOL EXTRA STRGTH) 500 mg tablet Take 500 mg by mouth every 6 hours. 07/12/19 22 Active Calcium Citrate 250 mg calcium tabletIndications :S/P laparoscopic sleeve gastrectomy Take two tablets (500 mg) three times daily 90 Tablet 5 12/01/19 22 Active cholecalciferol (VITAMIN D3) 50,000 unit capsuleIndication s:Vitamin D deficiency Take 1 Capsule (50,000 units) by mouth once weekly. 8 Capsule 10/09/19 23 Active budesonide-formot Santosh (Symbicort) 160-4.5 mcg/actuation (160-4.5 mcg each actuation) inhalerIndication s:Acute bronchitis, unspecified organism,Acute cough Inhale 2 Puffs by mouth two times daily. And 2 puff every 4-6 hours as needed for shortness of breath with a maximum 12 puffs/day. 10.2 g 3 08/19/19 24 Active hydrOXYzine HCL (ATARAX) 50 mg tablet Take 100 mg by mouth every 6 hours if needed. Active albuterol HFA (PRO-AIR; VENTOLIN; PROVENTIL) 90 mcg/actuation inhalerIndication s:Acute viral bronchitis Inhale 1-2 Puffs by mouth every 4 hours if needed for Shortness Of Breath or Wheezing. 1 Each 09/27/19 24 Active fluticasone (50 mcg per actuation) nasal solution (FLONASE)Indicati ons:Acute viral bronchitis Inhale 2 Sprays to both nostrils once daily. 16 g 09/27/19 24 Active norethindrone, Contraceptive, (MICRONOR, 28,) 0.35 mg tabletIndications :Encounter for initial prescription of contraceptive pills Take 1 Tablet (0.35 mg) by mouth once daily. 84 Tablet 4 03/18/20 24 Active tirzepatide (weight loss) 5 mg/0.5 mL subcutaneous vialIndications:C lass 2 obesity due to excess calories without serious comorbidity with body mass index (BMI) of 36.0 to 36.9 in adult,PCOS (polycystic ovarian syndrome) Inject 0.5 mL (5 mg) subcutaneous once weekly. 4 Each 12/13/19 25 Active tirzepatide (weight loss) 2.5 mg/0.5 mL subcutaneous vialIndications:C lass 2 obesity due to excess calories without serious comorbidity with body mass index (BMI) of 36.0 to 36.9 in adult,PCOS (polycystic ovarian syndrome) Inject 0.5 mL (2.5 mg) subcutaneous once weekly. 4 Each 11/13/19 25 Active Active Problems Patient Care Coordination No te Formatting of this note is d ifferent from the original. Weight Management - Adult Surgical Program Patient Received Binder: Patient has old binder but will new one. Part of KTYA Program: no BEP or GS Patient: No Initial Consult / Established Care 09/11/2021 with Ana Lilia Kowalski RN Intake: Wt Readings from Last 1 Encounters: 09/11/21 95.7 kg (211 lb) lbs, Ht Readings from Last 1 Encounters: 09/11/21 1.626 m (5' 4) , There is no height or weight on file to calculate BMI. Planned Operation TBD Payor: Traffio MA / Plan: Anda MA / Product Type: *No Product type* / Insurance requirements:TBD Est. Pgm Completion: ~ February, Procedure Location: [facility] Co-morbidities: To be determined Orders: Labs Yes Imaging / Procedures Upper GI Xray Series 11/03/21 and Endoscopy - Dock 11/21/21 Pre-Surgery Program Consults: - Registered Dietitian 3 - Psychological Evaluation: Dr. Walsh Referrals: No -Tobacco Cessation: reports that she has quit smoking. She has a 0.12 pack-year smoking history. She has never used smokeless tobacco. Problem Noted Date Diagnosed Date Class 2 obesity due to exces s calories without serious comorbidity with body mass index (BMI) of 36.0 to 36.9 in adult 08/07/2024 Moderate persistent reactive airway disease without complication 03/18/2024 Supervision of other normal , antepartu m 03/04/2023 Overview (03/04/2023): Gestational age at time of intake: 9w2d Patient preferred name: Dorene Acosta Hx: Celiac disease, PCOS, Obesity, Hx Gastric Sleeve, Hx Anemia, Hx Vaginal Delivery x 3 Concerns this : OB Hx: OB History Para Term AB Living 6 3 3 0 2 3 SAB IAB Ectopic Multiple Live Births 2 0 0 3 # Outcome Date GA Lbr Bennett/2nd Weight Sex Delivery Anes PTL Lv 6 Current 5 Term 11/02/19 40w0d 3.03 kg (6 lb 11 oz) F VAGINAL FCO EPI COLTON 4 2015 SPONTANEOUS 3 Term 11/12/12 41w6d 3.77 kg (8 lb 5 oz) F VAGINAL FCO EPI N COLTON 2 SAB 02/02/12 ND 1 Term 10/05/10 40w0d F VAGINAL FCO EPI COLTON Complications: Chorioamnionitis Obstetric Comments D&C x 2 for SABs No complications for deliveries of her daughters Early GTT indicated: Yes If yes: BMI >25 and First Degree Relatives with Diabetes Hx of thyroid disorder: No ASA indicated-High Risk for preeclampsia: No Level 2 FAS indicated (pre-preg BMI>30): Yes Genetic screening: Information sent to patient BMI: 35.00 >30 recommended weight gain 11-20# If prepregnancy BMI >30: Send to provider for Level II @ MPP Smoker: No HSV: Denies Ultrasound: To be Scheduled Flu vaccine: COVID-19 vaccine: Moderna 04/17/2021 COVID-19 booster: Pertussis Vaccine: Peds: [facility] Domestic violence screen: Denies Partners name: Clint Superior labrum anterior-to- posterior (SLAP) tear of right shoulder 07/30/2022 Dyslipidemia 12/14/2021 Vitamin D deficiency 11/30/2021 Vitamin B12 deficiency 08/09/2015 Achlorhydria 08/09/2015 S/P laparoscopic sleeve gastrectomy 08/08/2015 Family history of aneurysm 09/03/2014 PCOS (polycystic ovarian syndrome) 08/31/2014 Celiac disease 08/31/2014 Oppositional defiant disorder of childhood or ad olescence 07/01/2007 Infective otitis externa, unspecified 06/29/2007 TYLENOL OVERDOSE 06/27/2007 Attention deficit disorder without mention of hy peractivity 06/27/2007 Headache(784.0) 06/27/2007 Dysphagia Resolved Problems Problem Noted Date Diagnosed Date Resolved Date Obesity (BMI 30.0-34.9) 10/04/202207/19 Obesity, Class II, BMI 35-39.9 11/30/2021 10/04/2022 Obesity, Class III, BMI 40-4 9.9 (morbid obesity) 08/08/2015 10/04/2022 Encounters Date Type Department Care Team Description 12/01/2024 Refill [facility] [address] [place], [place] [phone] Star Medina MD Refill Request (Zepbound) 10/27/2024 Telephone [facility] [address] [place] [address] Star Medina MD Prior Authorization (tirzepatide (weight loss) (Zepbound) 2.5 mg/0.5 mL pen- (CLOSED)) 10/21/2024 Telephone [facility] [address] [place] [address] Star Medina MD Error-please disregard 10/09/2024 2:40 PM CDT Office Visit [facility] [address] [place] [address] Star Medina MD Medication Management 10/09/2024 Travel 09/16/20[address] [place] [address] Star Medina MD Prior Authorization (semaglutide (Wegovy) 0.25 mg/0.5 mL subcutaneous pen (Approved 07/18/2024-03/18/2025) ) from Last 3 Months Immunizations Immunization Administration Dates Next Due COVID-19 vaccine (Moderna 100mcg/0.5mL) PF, MDV 04/17/2021 DTaP 12/15/1997, 4,03/27/1993,1992,1992 Hepatitis B (Peds) 1992,1992, 992 Hib Conjugate, Unspecified 10/23/1993,,1992,1992 Human Papilloma Virus Vaccine 07/14/2007, 007,12/27/2006 Inactivated Polio Vaccine 12/20/1997,10/1993,1992,1992 Influenza Intradermal PF 18-64 yrs 02/18/2012 Influenza Virus, Unspecified 03/14/2023 Influenza, IIV3 (Age >=3 years) 04/06/2010,02/17 Influenza, IIV4 03/14/2023, 0,03/30/2019,2013,04/07/2013 MMR 01/18/2004,10/23/1993 Oral Polio Vaccine 12/15/1997 Td (Age >=7 Years) 01/18/2004 Tdap 11/14/2012,02/18/2012 Tdap, Unspecified 07/29/2023,08/10/2019 Varicella Vaccine 12/20/1997 Family History Medical History Relation Name Comments Diabetes Brother Type 1 Good Health Daughter 1 Good Health Daughter 2 Good Health Daughter 3 Alcohol/Drug Father Cancer Father Unknown kind. He was like 19 and ended up losing his leg Cancer-pancreatic Father Diabetes Father Type 2 Hyperlipidemia Father Hypertension Father Obesity Father Good Health Half-Sister Cancer-colon Maternal Grandfather Cancer-breast Maternal Grandmother Good Health Mother Lupus Mother Heart attack Paternal Grandfather Cancer Paternal Grandmother Anesthesia Problem No Family History Blood Disease No Family History Relation Name Status Comments Brother Alive Daughter 1 Alive Daughter 2 Alive Daughter 3 Alive Father Half-Sister Alive Maternal Grandfather Alive Maternal Grandmother Alive Mother Alive Paternal Grandfather Paternal Grandmother Social History Tobacco Use Types Packs/Day Years Used Date Smoking Tobacco: Former Passive Smoke Exposure: Never Smokeless Tobacco: Never Tobacco Cessation:Counseling Given: Not Answered Comments:Only in high school- social Alcohol Use Standard Drinks/Week Comments Not Currently 0 (1 standard drink = 0.6 oz pur e alcohol) Not since + UPT PHQ-2 Answer Date Recorded PHQ-2 TOTAL SCORE 0 08/17/2024 Social Connections Answer Date Recorded Do you often feel lonely or isolated from those around you? 0 08/07/2024 Financial Resource Strain Answer Date R ecorded Difficulty of Paying Living Expenses 3 08/07/2024 Difficulty of Paying Living Expenses Not on file 08/07/2024 Food Insecurity Answer Date Recorded Do you worry your food will run out before you are able to buy more? 1 08/07/2024 Transportation Needs Answer Date Record ed Does lack of transportation keep you from medica l appointments? 1 08/07/2024 Does lack of transportation keep you from work, meetings or getting things that you need? 1 08/07/2024 Housing Stability Answer Date Recorded What is your housing situation today? 1 08/07/2024 Utilities Answer Date Recorded Do you have trouble paying f or utilities (for example, heat, electricity, water, phone)? 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 Gender Identity Not on file Sexual Orientation Not on file Occupation Industry Job Start Date Job End Date Unemployed Not on file Not on file Not on file Obstetrics History Para Term AB IAB SAB Ectopic Multiple Livin g Live Births 6 4 4 0 2 0 2 0 0 3 3 Date Outcome GA Total Labor Labor/2nd/3rd Weight Sex Type Anes PTL Colton A1 A5 Name Clin 2010 Term 40w 0d F VAGINA L FCO Epidur al Livin g Isamar n Complications:Intraamniotic Infection Delivery Location:[facility] 2011 SAB SPONTA NEOUS 2012 Term 41w 6d 3.77 kg (8 lb 5 oz) F VAGINA L FCO Epidur al N Livin g Deep nzie Delivery Location:[facility] 2015 SAB SPONTA NEOUS 2019 Term 40w 0d 3.03 kg (6 lb 11 oz) F VAGINA L FCO Epidur al Livin g Arti y Delivery Location:[facility] 2023 Term 40w 5d F Vag Maril yn Comments D&C x 2 for SABs No complications for deliveries of her daughters Last Filed Vital Signs Vital Sign Reading Time Taken Comments Blood Pressure 118/70 10/09/2024 2:38 PM CDT Pulse 76 10/09/2024 2:38 PM CDT Temperature 36.8 C (98.3 F) 03/18/2024 2:04 PM CDT Respiratory Rate 18 08/19/2023 10:03 AM CDT Oxygen Saturation 97% 08/17/2024 10:01 AM CDT Inhaled Oxygen Concentration - - Weight 92.1 kg (203 lb) 10/09/2024 2:38 PM CDT Height 166 cm (5' 5.35) 10/09/2024 2:38 PM CDT Body Mass Index 33.42 10/09/2024 2:38 PM CDT Plan of Treatment Health Maintenance Due Date Last Done Comments HIV for age 15-65 2007 Pneumococcal series for age 6-49 (1 of 2 - PCV) 2011 COVID-19 vaccine series (2 - season) 2024 04/17/2021 Influenza Vaccine (#1) 2025 3, 03/14/2023, 05/02/2020, Additional history exists Depression screening for age 12+ 08/17/2025 08/17/2024, 08/17/2024, 08/02/2023, Additional history exists BMI (ht and wt on same day) for age 18+ 10/09/2025 10/09/2024, 08/07/2024, 04/21/2024, Additional history exists Pap test for age 21-65 04/03/2026 (Verified in Care Everywhere or Patient Record), 05/10/2020, 10/21/2013 (Completed outside of [facility]) Tetanus booster 07/28/2033 07/29/2023, 07/19, 11/14/2012, Additional history exists Hepatitis B series for 19+ Completed 10/20, 1992, 1992 Hepatitis C screening for ag e 18-79 Completed 12/13/2021 Medical Devices Implanted Type Area Yarn Examiner Device Identifier Shelf Expiration Date Model / Serial / Lot Tube Ear Tuoma T-Type - [id number] Implanted:Qty: 2 on 07/07/2009 at [facility] Bilateral: Ear XOMED [id number] / / [id number] Procedures Procedure Name Priority Date/Time Associated Diagnosis Comments ANTI HCV Routine 12/13/2021 9:51 AM CDT Need for hepatitis C screening test GLOVE MAKER THIN PREP PAP SCREEN IMAGED Routine 05/10/2020 2:47 PM PLATING DEPARTMENT HELPER Pap smear for cervical cancer screening from Last 3 Months or Most Recently Relevant to Health Maintenance Results * ANTI HCV (12/13/2021 9:51 AM CDT) HEPATITIS C ANTIBODY Non-React milton Non-React milton 12/13/2021 7:32 PM CDT [facility] Comment:Antibodies to HCV no t detected; does not exclude the possibility of exposure to HCV. Blood BLOOD SPECIMEN / Unknown Venipuncture / Unknown 12/13/2021 9:51 AM CDT 12/13/2021 9:51 AM CDT us Shiloh Luo Adrianna DO SEND OUTS Final Resul t [facility] [address] [place] [address], [place] * GLOVE MAKER THIN PREP PAP SCREEN IMAGED (05/10/2020 2:47 PM PLATING DEPARTMENT HELPER) Case Report Gynecologic Cytology Report Case: [id number] Authorizing Provider: Amos Drummond MD Collected: 05/10/2020 1447 Ordering Location: [facility] Received: 05/10/2020 1447 Clinic First Screen: Rose Mary Colon Specimen: GLOVE MAKER ThinPrep Vial Screening, Cervical 05/25/2020 8:51 AM PLATING DEPARTMENT HELPER [facility] INTERPRETATION/ RESULT NEGATIVE FOR INTRAEPITHELIAL LESION OR MALIGNANCY (NIL) (none) 05/25/2020 8:51 AM PLATING DEPARTMENT HELPER [facility] My Top 10-C [facility]AL LABORATORY at 0851 PLATING DEPARTMENT HELPER SPECIMEN ADEQUACY Satisfactory for evaluation Endocervical component present 05/25/2020 8:51 AM PLATING DEPARTMENT HELPER [facility] HPV REQUEST HPV if ASCUS 05/25/2020 8:51 AM PLATING DEPARTMENT HELPER [facility] Date of LMP Mar 2020 05/25/2020 8:51 AM PLATING DEPARTMENT HELPER [facility] Last Pap Date unknown 05/25/2020 8:51 AM PLATING DEPARTMENT HELPER [facility] Last Pap Result NIL 8:51 AM PLATING DEPARTMENT HELPER [facility] Abnormal Pap or [place] Bx in last 5 years No 05/25/2020 8:51 AM PLATING DEPARTMENT HELPER [facility] Menstrual Status Irregular Periods 05/25/2020 8:51 AM PLATING DEPARTMENT HELPER [facility] [place] Bx Done Today No 05/25/2020 8:51 AM PLATING DEPARTMENT HELPER [facility] My Top 10 [facility] Additional Information None given 05/25/2020 8:51 AM PLATING DEPARTMENT HELPER [facility] Comment: [facility] - [address], [place] [address] and [facility] - [address], [place] [address] and [facility] - [address] [place] [address] Interpreted at [facility] - [address], [place] [address] Automated Review Successful 05/25/2020 8:51 AM PLATING DEPARTMENT HELPER [facility] Comment:Specimen processed s uccessfully by automated skilled nursing facility counselor device, ThinPrep Imaging System, [employer] Note The pap test is a screening technique, not a diagnostic procedure. It is used primarily to screen for squamous cancers and precursor lesions. Published studies have shown that it is subject to both false negative and false positive results. The pap test should not be used as the sole means to diagnose or exclude pre-malignant and malignant lesions. 05/25/2020 8:51 AM PLATING DEPARTMENT HELPER [facility] Other (Cervical) Non-Blood / Unknown 05/10/2020 2:47 PM PLATING DEPARTMENT HELPER 05/10/2020 2:47 PM PLATING DEPARTMENT HELPER us Amos Drummond MD PATHOLOGY/CYTOLOGY Final Resul t [facility] [address] [place] [address], from Last 3 Months or Most Recently Relevant to Health Maintenance Additional Health Concerns Infection Onset Date Last Indicated Rule-Out C.diff 05/02/2020 05/02/2020 Insurance [facility] Member Subscriber Plan / Payer (Ef fective 2024-Present) Name:Dorene Day Relation to Subscriber:Self Name:Dorene Day Payer ID:[id number] (NAIC) Group ID:[id number] Type:Not on file Address: [place] [id number] [employer] * Guarantor: Becki Rajan Account Type Relation to Patient Date of Phone Billing Address Personal/Family Mother 1964 [address] [place] [address] [place] [address] Advance Directives * Full Code (Latest Code Status on File) Date Activated Date Inactivated Comments 11/21/2021 10:57 AM 11/21/2021 3:23 PM Question Answer Comments Code Status Discussion: Reviewed Preferences * Full Code Date Activated Date Inactivated Comments 01/24/2016 9:25 AM 01/24/2016 1:47 PM * Full Code Date Activated Date Inactivated Comments 10/14/2015 1:00 PM 10/14/2015 6:37 PM Question Answer Comments Code Status Discussion: Not Discussed * Full Code Date Activated Date Inactivated Comments 10/14/2015 9:56 AM 10/14/2015 1:00 PM Question Answer Comments Code Status Discussion: Not Discussed * Full Code Date Activated Date Inactivated Comments 08/08/2015 11:57 AM 08/09/2015 9:06 PM Care Teams Nanny Caregiver Relationship Specialty [place] [address] [place] [address] PCP - General Family Practice 08/30/14 Ana Lilia Byrd PA [address] [id number] Physician's Tool Inspector Physician Tool Inspector 10/26/21 Tl Cortes MD [address] [phone] Consulting Physician Surgery - General 10/26/21 Jenni Kowalsik RN [address] [id number] Medical Billing Specialist Registered Nurse 10/26/21 Bev Avila CNS [address] [place], [place] [phone] Clinical Nurse Specialist 11/30/21 Devora Jackson, DAGMAR [address] [place], [place] [phone] Biostatistician 11/30/21 Vargas Cash, EVERETTE [address] [place], [place] [phone] Registered Nurse 11/30/21
--- OUTSIDE RECORDS SUMMARY | 2024-12-13 07:23 | XMS_ITS | Patient Health Record ---
Author Organization [facility] Address [address] [place] [address] Care Team Providers Care Reactor Technician Name Role Phone None, No PCP Primary Care Provider Bethany Peace [phone] Allergies Allergen (clinical drug ingredient) Drug/Non Drug Allergy documented on EMR Reaction Allergy Type Onset Date Status Gluten Gluten Unknown Allergy Active Reason For Referral No Information Social History Tobacco Use: Social History Observation Description Date Details (start date - stop date) Never Smoker NA - NA Tobacco Control (Standard) Question Answer Notes Tobacco use: Nonsmoker Problems Problem Type SNOMED Code ICD Code Onset Dates Problem Status W/U Status Risk Notes Problem 83505123 Cyst of right ovary (N83.201) Active confirmed Problem 224473114 Polycystic ovaries (E28.2) Active confirmed Vital Signs Blood pressure diastolic 70 mm Hg 04/08/2024 k Height 64 in 04/08/2024 k Blood pressure systolic 110 mm Hg 04/08/2024 k Weight 211.6 lbs 04/08/2024 k BMI 36.32 kg/m2 04/08/2024 k Encounters Encounter Location Date Provider Diagnosis [facility] [address] [place] [address] 04/08/2024 Bethany Mazariegos Cyst of right ovary N83.201 and Polycystic ovaries E28.2 [facility] [address] [place] [address] 04/08/2024 Bethany Mazariegos Pelvic pain R10.2 [facility] [address] [place] [address] 11/29/2024 Bethany Mazariegos [facility] [address] [address] 05/03/2024 Bethany Mazariegos Assessments Encounter Date Diagnosis (ICD Code) Assessment Notes Treatment Notes Treatment Clinical Notes Section Notes 04/08/2024 Pelvic pain (ICD-10 - R10.2) 04/08/2024 Cyst of right ovary (ICD-10 - N83.201) AND BLEED FIRST TIME SINE DEL 6 MTHS AGO AND IN [place] AND SEVERE PAIN AND HEAVY BLEED AND HAD A CT AND TOLD RUPTURED CYST AND MEDS AND HOME. MENSES BETWEEN PG IRREG 2-6 WKS AND HEAVY BUT HAD NEXPLANON AND WITH BC MENSES GOOD. HUBBY TO HAVE VASC AND WILL SEE WHAT MENSES ARE LIKE AFTER BUT IF ANOTHER PAINFUL HEAVY MENSES RTC--IF CONT IUD REV AND SOUNDS LIKE WOULD DO. NEED CT REPORT TO SEE IF CYST NOW SMALLER AND IS COMPLEX--IF CANT COMARE REC REDO ULTRASOUND 3-4 MTHS AT END OF BLEED--IF DOESNT HEAR FROM ME IN 2 WKS CALL TO REV CT RESULTS 04/08/2024 Polycystic ovaries (ICD-10 - E28.2) MENSES IRREG BETWEEN PG AND BLEEDS Q 2-6 WKS SO WILL REEVAL AFTER DONE Plan Of Treatment No Information Insurance Providers Payer Name Payer Address Payer Phone Subscriber Number Group Number Insured Name Patient Relationship to Insured Coverage Start Date Coverage End Date BCBS - (Client Bill) [address] [place] [phone] [id number] Dorene Day Self - patient is the insured 2023 Medical (General) History Surgical History Surgery Date(Month/Year) gastric sleeve 2016
--- OUTSIDE RECORDS SUMMARY | 2024-12-13 07:23 | XMS_ITS | Clinical Summary ---
Author Organization [facility] Address [address] [place] [id number] Care Team Providers Care Software Sales Consultant Name Role Phone [facility] Primary Care Provider Allergies Active Allergy Reactions Criticality Noted Date Comments Nsaids 01/22/2017 Medications OMEPRAZOLE PO Active Vit-Fe Fumarate-FA ( MULTIVITAMIN PLUS IRON) 27-1 MG TABSIndications:P regnancy Take 1 tablet by mouth daily Active hydrOXYzine (VISTARIL) 50 MG capsule Take 100 mg by mouth 3 times daily as needed for itching Active albuterol (PROAIR HFA/PROVENTIL HFA/VENTOLIN HFA) 108 (90 Base) MCG/ACT inhaler Inhale 2 puffs into the lungs every 6 hours as needed for shortness of breath, wheezing or cough Active budesonide-formot jose e (SYMBICORT) 160-4.5 MCG/ACT InhalerIndication s:Asthma Inhale 2 puffs into the lungs 2 times daily Active Active Problems Problem Noted Date Diagnosed Date Encounter for induction of labor 10/10/2023 Single liveborn infant delivered vaginally 10/09 Biliary colic 04/06/2013 Immunizations Immunization Administration Dates Next Due Influenza Vaccine >6 months,josephine, PF 04/07/2013 Social History Tobacco Use Types Packs/Day Years Used Date Smoking Tobacco: Never Smokeless Tobacco: Never Alcohol Use Standard Drinks/Week Comments Not Currently 0 (1 standard drink = 0.6 oz pur e alcohol) occ [place] Depression Scale Answer Date Recorded Last EPDS Total Score Not on file 10/11/2023 The thought of harming myself has occurred to me . Never 10/11/2023 Adolescent Education Answer Date Record ed Getting School Help Needed Not on file 08/07 Comments No Sex and Gender Information Value Date Recorded Sex Assigned at Female 10/05/2023 3:51 PM CDT Legal Sex Female 4:25 AM NETEZZA DEVELOPER Gender Identity Female 10/05/2023 3:51 PM CDT Sexual Orientation Straight 10/05/2023 3: 51 PM CDT Last Filed Vital Signs Vital Sign Reading Time Taken Comments Blood Pressure 126/81 10/11/2023 4:27 PM CDT Pulse 86 10/11/2023 4:27 PM CDT Temperature 36.9 C (98.4 F) 10/11/2023 4:27 PM CDT Respiratory Rate 16 10/11/2023 4:27 PM CDT Oxygen Saturation 99% 10/10/2023 5:22 PM CDT Inhaled Oxygen Concentration - - Weight 95.2 kg (209 lb 14.4 oz) 10/11/2023 5:00 PM CDT Height 162.6 cm (5' 4) 10/10/2023 8:21 AM CDT Body Mass Index 36.03 10/10/2023 8:21 AM CDT Plan of Treatment Health Maintenance Due Date Last Done Comments ADVANCE CARE PLANNING 1992 ANNUAL REVIEW OF HM ORDERS 1992 YEARLY PREVENTIVE VISIT 1995 DTAP/TDAP/TD VACCINE (8 - Td or Tdap) 11/14/2022 11/14/2012, 02/18/2012, 01/18/2004, Additional history exists COVID-19 VACCINE (2 - season) 2024 04/17/2021 PHQ-2 (once per calendar year) 2024 INFLUENZA VACCINE (#1) 2025 , 05/02/2020, 03/30/2019, Additional history exists PAP 04/03/2026 04/03/2023 ZOSTER VACCINE (1 of 2) 2042 HEPATITIS B VACCINE Completed 1992, 1992, 1992 HPV VACCINE Completed 07/14/2007, 02/18, 12/27/2006 HEPATITIS C SCREENING Completed 03/14/2023 HIV SCREENING Completed 03/14/2023 MENINGITIS VACCINE Aged Out No longer eligible based on patient's age to complete this topic PNEUMOCOCCAL VACCINE: PEDIATRICS (0 to 5 YEARS) AND AT-RISK PATIENTS (6 to 49 YEARS) Aged Out No longer eligible based on patient's age to complete this topic Procedures Procedure Name Priority Date/Time Associated Diagnosis Comments GYNECOLOGIC CYTOLOGY Routine 04/03/2023 9:14 AM NETEZZA DEVELOPER Encounter for supervision of other normal , first trimester HIV ANTIGEN ANTIBODY COMBO Routine 03/14/2023 10:35 AM CDT Encounter for supervision of normal , unspecified, first trimester HEPATITIS C ANTIBODY Routine 03/14/2023 10:35 AM CDT Encounter for supervision of normal , unspecified, first trimester from Last 3 Months or Most Recently Relevant to Health Maintenance Results * Gynecologic Cytology (PAP) (04/03/2023 9:14 AM NETEZZA DEVELOPER) Interpretation Negative for Intraepithelial Lesion or Malignancy (NILM) 04/06/2023 10:26 AM [facility]EZZA DEVELOPER [facility] at [address]26 NETEZZA DEVELOPER Comment Papanicolaou Test Limitations: Cervical cytology is a screening test with limited sensitivity, and regular screening is critical for cancer prevention. Pap tests are primarily effective for the diagnosis/prevent ion of squamous cell carcinoma, not adenocarcinoma or other cancers. 04/06/2023 10:26 AM NETEZZA DEVELOPER [facility] Specimen Adequacy Satisfactory for evaluation, endocervical/medina sformation zone component absent 04/06/2023 10:26 AM [facility]EZZA DEVELOPER [facility] Clinical Information 04/06/2023 10:26 AM [facility]EZZA DEVELOPER [facility] LMP/Menopause Date 12/31/2022 04/06/2023 10:26 AM [facility]EZZA DEVELOPER [facility] Reflex Testing Yes if ASCUS 04/06/20 10:26 AM NETEZZA DEVELOPER [facility] Previous Abnormal? No 04/06/2023 10:26 AM NETEZZA DEVELOPER [facility] Previous Abnormal Diagnosis NL 04/06/2023 10:26 AM NETEZZA DEVELOPER [facility] Performing Labs The technical component of this testing was completed at [facility] 04/06/2023 10:26 AM NETEZZA DEVELOPER [facility] Brushing CERVIX UTERI STRUCTURE / Unknown 04/03/2023 9:14 AM NETEZZA DEVELOPER 04/03/2023 1:12 PM NETEZZA DEVELOPER Bethany Mazariegos MD LAB - BEAKER AP Final Result [facility] [address] [facility], [address] [id number], [facility] [phone] * HIV Antigen Antibody Combo [place] (03/14/2023 10:35 AM CDT) HIV Antigen Antibody Combo Nonreactive Nonreactive 03/15/2023 12:26 PM CDT [facility] DO Comment:HIV-1 p24 Ag & HIV-1 /HIV-2 Ab Not Detected Blood TOPOGRAPHY UNKNOWN / Unknown Client Draw / Unknown 03/14/2023 10:35 AM CDT 03/14/2023 8:18 PM CDT Brandan Darby PA-C LAB - BLOOD ORDERABLES Final Result [facility] [address] [facility] [id number], [facility] [phone] * Hepatitis C antibody (03/14/2023 10:35 AM CDT) Hepatitis C Antibody Nonreactive Nonreactive 03/15/2023 12:31 PM CDT [facility] DO Blood TOPOGRAPHY UNKNOWN / Unknown Venipuncture / Unknown 03/14/2023 10:35 AM CDT 03/14/2023 10:09 PM CDT Narrative [facility] - 03/15/2023 12:31 PM CDT Assay performance characteristics have not been established for newborns, infants, and children. us Brandan Darby PA-C LAB - BLOOD ORDERABLES Final Result [facility]Endo [address] [facility] [address], [address] [place] [address], [facility] [phone] from Last 3 Months or Most Recently Relevant to Health Maintenance Insurance [place] [place] Advance Directives For more information, please contact: [phone] * Full Code (Latest Code Status on File) Date Activated Date Inactivated Comments 10/10/2023 9:11 AM 10/11/2023 9:05 PM All basic an d advanced life-sustaining interventions are performed as appropriate Question Answer Comments Code status determined by: Discussion with jeff luong/ legal decision maker * Full Code Date Activated Date Inactivated Comments 04/06/2013 7:14 PM 04/07/2013 11:33 AM Care Teams Software Sales Consultant Relationship Specialty Start Date End Date [facility], [facility] [address] [place] [address] PCP - General 09/04/14
[2024-12-13 07:27] VITALS: BP 112/75; PULSE 98; RESP 16; TEMP 37; O2SAT 97
--- NOTE | 2024-12-13 07:39 | CRLHL7_ITS ---
For Patients: As a result of the Cures Act, medical imaging exams and procedure reports are released immediately into your electronic medical record. You may view this report before your referring provider. If you have questions, please contact your health care provider. INDICATION: Injury, not otherwise described. COMPARISON: None available. TECHNIQUE: Three views of the right great toe. FINDINGS: Mineralization: Normal. Alignment: Normal. Bones and Joints: No fracture is identified. Soft Tissues: Unremarkable. IMPRESSION: No acute traumatic injury is identified. Dictated by Asaf Aguilar MD @ 12/13/2024 8:04:56 AM (Electronically Signed)
--- NOTE | 2024-12-13 07:41 | ED_ITS ---
HPI - General Adult General Chief complaint: Extremity Pain/Injury, Lower Stated complaint: right foot injury Time Seen by Provider: 12/13/24 07:24 History of Present Illness HPI narrative: Patient is a 32 year white female injured her right great toe under a door last night was open. She is uncertain of last tetanus shot but she thinks she had with her last which is recent. She has no other specific complaints. She has had blood into the nail it has leaked out on both sides of the nail. She has some tenderness along the nail insertion at the toes well. No other toes affected. Patient is generally healthy. No allergies to medications. Related Data Home Medications ?Medication ?Instructions ?Recorded ?Confirmed semaglutide (weight loss) 0.25 0.25 mg subcut 12/13/24 mg/0.5 mL subcutaneous pen injector (Wegovy) Allergies Allergy/AdvReac Type Severity Reaction Status Date / Time No Known Drug Allergies Allergy Verified 12/13/24 07:32 Review of Systems Status of ROS: Reports: 6 or more systems reviewed and unremarkable except as noted in History and below PFSH PFS Social History Smoking Status: Never smoker How often do you have a drink containing alcohol: never AUDIT-C Alcohol total score: 0 Non-prescribed substance use: denies use Exam Narrative: Exam Narrative: 34-year-old female in mild distress 2nd to discomfort of her toe she has a subungual hematoma noted, she has some bleeding along the sides of the nail distally. Mild tenderness of the great toe itself over the distal phalanx area nail appears slightly raise but appears inserted into the nail bed appropriately. There is some mild pullback of the skin at the base of the nail. No other open wounds noted Const: Vital Signs, click to edit/add: Vital Signs - 24 hr 12/13/24 07:27 Temperature 98.6 F Pulse Rate [Pulse Oximeter] 98 Respiratory Rate 16 Blood Pressure [Ri ght Upper Arm] 112/75 Pulse Oximetry 97 Oxygen Delivery Me thod Room Air Course Vital Signs Vital signs: Initial Vital Signs Temperature 98.6 F 12/13/24 07:27 Temperature Source Temporal Artery Scan 12/13/24 07:27 Pulse Rate 98 12/13/24 07:27 Respiratory Rate 16 12/13/24 07:27 Blood Pressure 112/75 12/13/24 07:27 Blood Pressure Mean 87 12/13/24 07:27 Blood Pressure Position Sitting 12/13/24 07:27 Pulse Oximetry 97 12/13/24 07:27 Oxygen Delivery Method Room Air 12/13/24 07:27 Vital Signs Temperature 98.6 F 12/13/24 07:27 Pulse Rate 98 12/13/24 07:27 Respiratory Rate 16 12/13/24 07:27 Blood Pressure 112/75 12/13/24 07:27 Pulse Oximetry 97 12/13/24 07:27 Oxygen Delivery Method Room Air 12/13/24 07:27 Temperature 98.6 F 12/13/24 07:27 Pulse Rate 98 12/13/24 07:27 Respiratory Rate 16 12/13/24 07:27 Blood Pressure 112/75 12/13/24 07:27 Pulse Oximetry 97 12/13/24 07:27 Oxygen Delivery Method Room Air 12/13/24 07:27 Medications Administered Medications: Generic Name Dose Route Start Last Admin Trade Name Kenna PRN Reason Stop Dose Admin Hydrocodone Bitart/Acetaminophen 1 tab 12/13/24 07:39 12/13/24 08:02 Hydrocodone/Acetamin 7.5-325 Tablet PO 12/13/24 07:40 1 tab ONCE ONE Administration Cephalexin HCl 500 mg 12/13/24 07:39 12/13/24 08:02 Cephalexin 500 Mg Capsule PO 12/13/24 07:40 500 mg ONCE ONE Administration Medical Decision Making MDM Narrative Medical decision making narrative: 34-year-old female with subungual hematoma and grade 2 injury. The Patient had a procedure: Hot tip cautery was used to open 1 opening in the great nail. She had bloody egress. X-ray of the toes pending. The patient appears to have mild elevation of the nail just minimally but it is intact and the nail bed I think just simply leaving it and tacked in place right now makes sense. She certainly could lose the nail. But I think given its position it is a which should allow to describe out from where it is if she does need he loses nail grow a new nail. Will check on tetanus, give her [place], and give her a Keflex and start Keflex at home as well. Addendum 8:05 a.m. the patient's x-ray by my read looks negative. She had a hot tip cautery used to put a hole in the subungual hematoma that has drained well. Her pain is little bit better. She is given [place], Keflex, and will be given an updated Tdap. She will engage in light activity no weight-bearing on the toe for about 3-5 days, soak in warm soapy water 3 to 5 times a day for 5-10 minutes, recheck with primary care as needed. Instructed she may lose the nail, but in tact nailbed means just let the nail grow out if she does lose it other sandoval it will review a firm and solidify and likely be in good condition. Recheck as needed. Discharge Plan Discharge Clinical Impression: Injury of right great toe, Subungual hematoma Patient Disposition: Home w/ Parent or Adult Condition: Improved Additional Instructions: No weight-bearing right great toe for the next 3-5 days, soak in soapy water that is warm 5 it 5 times a day for 5-10 minutes each time. Antibiotic and pain medicine be provided. Do not drive or drink with the pain medicine. Return as needed. Recheck with her regular doctor next week to 10 days if any concerns or questions otherwise return to the ED sooner. Activity Level: Light activity Discharge Diet: Regular Prescriptions: No Action Wegovy 0.25 mg/0.5 mL pen injector 0.25 mg subcut Stand Alone Forms: [facility] Info Instructions
[2024-12-13] MEDS: HYDROCODONE/ACETAMIN 7.5-325 TABLET 1 TAB PO (08:02)
[2024-12-13] MEDS: TETANUS/DIPHTH/PERTUSSIS 0.5 ML SYRINGE IM (08:24)
== END 2024-12-13 08:41 | disposition home or self-care (01) ==
PROVIDERS: Emergency Provider Family Medicine
DX: S90.211A Contusion of right great toe with damage to nail, initial encounter (principal); W22.8XXA Striking against or struck by other objects, initial encounter
CPT/HCPCS: 73660; 90471; 90715; 99283; 99284; A9270